=== PATIENT | female | born 1980 | race Caucasian/White ===

== ENCOUNTER 2017-05-08 10:40 | Emergency (ER) | payer SELFPAY ==
[~2017-05-08] VITALS: Ht 165.1 cm; Wt 68.0 kg
[~2017-05-08 10:40] MED LIST: BACTROBAN21 EX; BENADRYL 50MG C50 MG PO; CEPHALEXIN500 MG OR; CIPROFLOXACN500 MG PO; FLONASE NASAL50 MCG; IBUPROFEN200 MG PO; LORTAB 5 OR; LORTAB5 OR; MECLIZINE25 MG PO; MEDDOSEPAK PO; NAPROSYN500 MG OR; NO HOME MEDS; PENICILLN VK500 M1 OR; PEPCID20 MG PO; PERCOCET 5/325M1 TAB PO; PRILOSEC20 MG/CAP PO; PROTONIX40 M2 PO; TRAMADOL HCL50 MG PO; ZITHROMAX250 MG PO; ZITHROMAX500 MG PO; ZOFRAN ODT4 MG PO
[2017-05-08] MEDS ORDERED: IBUPROFEN200 MG PO (10:48)
[2017-05-08] MEDS ORDERED: NAPROSYN500 MG PO (11:46)
[2017-05-08 12:16] VITALS: BP 129/75
== END 2017-05-08 12:20 | disposition home or self-care (01) | DRG 563 ==
LOC: ED 10:40
DX: S86.912A Strain of unspecified muscle(s) and tendon(s) at lower leg level, left leg, initial encounter (principal); X50.0XXA Overexertion from strenuous movement or load, initial encounter; Y93.41 Activity, dancing; Y92.29 Other specified public building as the place of occurrence of the external cause